=== PATIENT | female | born 1955 | race Caucasian/White ===

== ENCOUNTER 2018-08-01 14:22 | Outpatient (CLI) | payer MEDICAID ==
[~2018-08-01] VITALS: Ht 154.9 cm; Wt 64.0 kg
[2018-08-01 14:53] VITALS: BP 112/72
[2018-08-01] MEDS ORDERED: AMOXICILLIN500 MG ORAL (14:55)
[2018-08-01] MEDS ORDERED: CLARITHROMYCIN500 MG PO (14:55)
[2018-08-01] MEDS ORDERED: PANTOPRAZOLE SO40 MG ORAL (14:55)
--- NOTE | 2018-08-01 18:46 | GI Initial Consult Note ---
History of Present Illness General Date patient seen: Aug 01, 2018 Time patient seen: 15:00 Referring physician: HMO Reason for Consultation: epigastric pain Present Illness HPI A 52 year old female presents to the clinic, complaining of epigastric vs chest pain Pt states that she stayed up all night due to pain. Pt has history of acid reflux disease, previously positive H. Pylori infection. At this time, breath test not performed. The patient denies any unintentional weight loss or changes in dietary habit. The patient is ambulatory, NAD, no active signs/ symptoms of nausea, vomiting, or diarrhea, and is not at fall risk. Home Meds Reported Medications Clarithromycin* (CLARITHROMYCIN*) 500 Mg Tablet, 500 MG PO Q12HR, TAB 08/01/18 Amoxicillin* (AMOXIL*) 500 Mg Capsule, 500 MG ORAL BID, CAP 08/01/18 Pantoprazole* (PANTOPRAZOLE*) 40 Mg Tablet.dr, 40 MG ORAL EVERY 12 HOURS, TAB 08/01/18 Med list reviewed/reconciled: Yes Allergies: Coded Allergies: No Known Allergies (Unverified , 08/01/18) Patient History History Provided By: Patient, Medical Record PMH Narrative GERD H.Pylori infection Past Surgical History: none Pertinent Family History: none Social History: Reports: other - coffee; Denies: smoking, alcohol use, drug use Review of Systems All Other Systems: negative except mentioned in HPI Physical Exam Vital Signs Date Time Temp Pulse Resp B/P (MAP) Pulse Ox O2 Delivery O2 Flow Rate FiO2 08/01/18 14:53 98.0 76 16 112/72 94 Sp02 EP Interpretation: reviewed, normal General Appearance: well appearing, no apparent distress, alert Head: normocephalic EENT: PERRL/EOMI, normal ENT inspection Neck: supple Respiratory: normal breath sounds, no respiratory distress Cardiovascular: normal rate Gastrointestinal: normal inspection, non tender, soft, normal bowel sounds, non -distended Rectal: deferred Genitourinary: no CVA tenderness Musculoskeletal: normal inspection, back normal Neurologic: normal inspection, alert, oriented x3, responsive Psychiatric: normal inspection, judgement/insight normal, memory normal Skin: normal inspection, normal color, no rash, warm/dry, palpation normal, well hydrated Lymphatic: normal inspection, no adenopathy GI: Plan Problems: (1) H. pylori infection (2) GERD (gastroesophageal reflux disease) (3) Colonoscopy planned Plan EGD/Colonoscopy to be scheduled, pending PA, will contact patient - CLD & (Nulytely/Suprep/Movi-Prep) prep instructions given and acknowledged by patient. - NPO @ [place] day prior procedure explained. Will follow with additional rec post procedure Will need to repeat breath test after H. Pylori treatment Seen with Dr. Guallpa. Thank you for this patient referral. The patient was seen and examined at bedside and all new and available data was reviewed in the patients chart. I agree with the above findings, impression and plan. (Patient seen earlier today. Signature stamp does not reflect patient encounter time.). - MD Celi Vann Anh-Lico [employer] Aug 01, 2018 18:46
== END 2018-08-01 14:52 | disposition home or self-care (01) ==
LOC: PAN 14:22
DX: A04.8 Other specified bacterial intestinal infections (principal); K21.9 Gastro-esophageal reflux disease without esophagitis
CPT/HCPCS: 99202

== ENCOUNTER 2018-09-01 13:30 | Outpatient (CLI) | payer MEDICAID ==
[~2018-09-01 13:30] MED LIST: AMOXICILLIN500 MG ORAL; CLARITHROMYCIN500 MG PO; PANTOPRAZOLE SO40 MG ORAL
[2018-09-01 15:31] VITALS: BP 97/65
--- NOTE | 2018-09-01 15:55 | GI Progress Note ---
Assessment/Plan Problems: (1) GERD (gastroesophageal reflux disease) ICD Codes: K21.9 - Gastro-esophageal reflux disease without esophagitis SNOMED: 599825332 (2) H. pylori infection ICD Codes: A04.8 - Other specified bacterial intestinal infections SNOMED: 870118952 Status: stable Status Narrative Seen with Dr. Guallpa. Assessment/Plan Abdominal U/S ordered ppi daily RTC after imaging studies The patient was seen and examined at bedside and all new and available data was reviewed in the patients chart. I agree with the above findings, impression and plan. (Patient seen earlier today. Signature stamp does not reflect patient encounter time.). - Gama Guallpa MD Subjective Subjective abdominal pain, epigastric GERD, had dc protonix after H. Pylori treatment. -- was worse after procedure, c /o of all night pain Objective Last 24 Hour Vital Signs Date Time Temp Pulse Resp B/P (MAP) Pulse Ox O2 Delivery O2 Flow Rate FiO2 09/01/18 15:31 98.1 81 16 97/65 95 General Appearance: WD/WN, no apparent distress, alert Cardiovascular: normal rate Respiratory/Chest: normal breath sounds, no respiratory distress Abdominal Exam: normal bowel sounds, non tender, soft Extremities: normal range of motion, non-tender Aric Alatorre [employer] Sep 01, 2018 15:55
== END 2018-09-01 14:00 | disposition home or self-care (01) ==
LOC: PAN 13:30
DX: K21.9 Gastro-esophageal reflux disease without esophagitis (principal); A04.8 Other specified bacterial intestinal infections
CPT/HCPCS: 99212

== ENCOUNTER 2019-11-08 14:36 | Outpatient (CLI) | payer MEDICAID ==
[~2019-11-08 14:36] MED LIST changes: +OMEPRAZOLE40 M1 ORAL
--- NOTE | 2019-11-08 15:15 | General Progress Note ---
Assessment/Plan Assessment/Plan: Assessment/Plan Problems: (1) GERD (gastroesophageal reflux disease) ICD Codes: K21.9 - Gastro-esophageal reflux disease without esophagitis SNOMED: 788094777 (2) H. pylori infection ICD Codes: A04.8 - Other specified bacterial intestinal infections SNOMED: 424816988 Status: stable . Assessment/Plan Abdominal U/S reviewed recommend cholecystectomy patient advised to fu with the primary for referal Subjective ROS Limited/Unobtainable: Yes Allergies: Coded Allergies: No Known Allergies (Unverified , 08/01/18) Objective General Appearance: alert EENT: normal ENT inspection Neck: supple Cardiovascular: normal rate Respiratory/Chest: decreased breath sounds Abdomen: normal bowel sounds, non tender, soft Extremities: non-tender Gama Guallpa MD Nov 08, 2019 15:15
[2019-11-08 15:33] VITALS: BP 118/71
== END 2019-11-08 16:52 | disposition home or self-care (01) ==
LOC: PAN 14:36
DX: K21.9 Gastro-esophageal reflux disease without esophagitis (principal); A04.8 Other specified bacterial intestinal infections
CPT/HCPCS: 99212